=== PATIENT | male | born 1950 | race Caucasian/White ===

== ENCOUNTER → 2017-09-11 | Outpatient (CLI) | payer BC, OTHER ==
[~2017-09-11] MED LIST: APAP650 PO; ATIVAN0.5 MG PO; FISH OIL 1,001000 M2 PO; FLAX SEED OIL1000 MG PO; FOLGARD TABLET1 EAC1 PO; IBUPROFEN 400400 M2 PO; LEVAQUIN 500 M500 M2 PO; LEVAQUIN 7750 MG/152 IV; NEPHROCAPS SOFT1 CAP PO; TRAMADOL 50 MG50 MG PO; UNICOMPLEX M TA1 TA1 PO
== END ==
LOC: MRI 09:20
DX: M47.896 Other spondylosis, lumbar region (principal); M51.27 Other intervertebral disc displacement, lumbosacral region; M48.07 Spinal stenosis, lumbosacral region; R03.0 Elevated blood-pressure reading, without diagnosis of hypertension

== ENCOUNTER → 2019-11-14 | Outpatient (CLI) | payer OTHER | LOC: CAT 07:48 | PROVIDERS: ATTEND Family Medicine | DX: Z13.6 Encounter for screening for cardiovascular disorders (principal); I25.10 Atherosclerotic heart disease of native coronary artery without angina pectoris; E78.00 Pure hypercholesterolemia, unspecified ==

== ENCOUNTER → 2019-11-18 | Outpatient (CLI) | payer OTHER, BC | LOC: MRI 12:24 | PROVIDERS: ATTEND Family Medicine | DX: S82.201A Unspecified fracture of shaft of right tibia, initial encounter for closed fracture (principal); S82.401A Unspecified fracture of shaft of right fibula, initial encounter for closed fracture; S80.01XA Contusion of right knee, initial encounter; S83.281A Other tear of lateral meniscus, current injury, right knee, initial encounter; S83.241A Other tear of medial meniscus, current injury, right knee, initial encounter; M25.461 Effusion, right knee; M85.661 Other cyst of bone, right lower leg; X58.XXXA Exposure to other specified factors, initial encounter; Y93.89 Activity, other specified; Y92.89 Other specified places as the place of occurrence of the external cause; Y99.8 Other external cause status ==

== ENCOUNTER → 2020-12-17 | Outpatient (CLI) | payer OTHER, BC | LOC: SJCVCIMAG 08:54 | PROVIDERS: ATTEND Internal Medicine | DX: I34.0 Nonrheumatic mitral (valve) insufficiency (principal); I10 Essential (primary) hypertension; R06.00 Dyspnea, unspecified; R07.89 Other chest pain ==